=== PATIENT | male | born 1985 | race Caucasian/White ===

== ENCOUNTER 2023-02-26 14:22 | Outpatient (OUT) | payer OTHER, SELFPAY ==
--- NOTE | 2023-02-26 14:31 | ECG_ITS ---
[facility] Test Date: 2023-02-26 Pat Name: CAMI GONZALEZ Department: Room: - Gender: Male Network Specialist: : [id number] Requested By: LACEY LIU Order Number: [id number] Reading MD: RUBIN ALLEN Measurements Intervals [place] Rate: 95 P: 28 SC: 172 QRS: 42 QRSD: 88 T: 13 QT: 326 QTc: 410 Interpretive Statements SINUS RHYTHM Non-Specific T wave inversion in III No previous ECG available for comparison Electronically Signed On 02-27-2023 5:37:38 EDT by RUBIN ALLEN
[2023-02-26 15:25] LABS: Anion Gap 9.8; BUN Creatinine Ratio 8.4; Calcium 9.6 mg/dL (8.5-10.1); Carbon Dioxide 28.1 mmol/L (21.0-32.0); Chloride 101 mmol/L (98-107); Estimated GFR (African America >60 (>=60); Estimated GFR (Non-African Ame >60 (>=60); Glucose 115 mg/dL (74-106); Potassium 3.9 mmol/L (3.5-5.1); Sodium 135 mmol/L (136-145)
[2023-02-26 15:42] LABS: Basophils Absolute Auto 0.1 10^3/uL (0.0-0.1); Eosinophils Absolute Auto 0.7 10^3/uL (0.0-0.7); Eosinophils Percent Auto 7.7 % (0.9-7.0); Hematocrit 48.6 % (42.0-54.0); Immature Granulocytes Abs Auto 0.04 10^3/uL (0.00-0.03); Immature Granulocytes Pct Auto 0.5 % (0.0-0.5); Lymphocytes Absolute Auto 3.2 10^3/uL (1.2-3.8); Lymphocytes Percent Auto 38.5 % (20.5-60.0); Mean Corpuscular Hemoglobin 30.3 pg (25.9-34.0); Mean Corpuscular Volume 86.6 fL (80.0-94.0); Mean Platelet Volume 9.8 fL (9.5-13.5); Monocytes Absolute Auto 0.9 10^3/uL (0.3-0.8); Monocytes Percent Auto 10.1 % (1.7-12.0); Neutrophils Absolute Auto 3.5 10^3/uL (1.4-6.5); Neutrophils Percent Auto 42.2 % (43.0-75.0); Platelet Count 324 10^3/uL (150-450); Red Blood Count 5.61 10^6/uL (4.70-6.10); Red Cell Distribution Width 12.5 % (11.0-15.0); White Blood Count 8.4 10^3/uL (4.0-11.0)
[2023-02-26 15:55] LABS: INR 0.99; Partial Thromboplastin Time 26.3 sec (22.3-36.2); Prothrombin Time 10.5 sec (9.0-11.6)
== END 2023-02-26 14:23 | disposition home or self-care (01) ==
LOC: PST 14:25
PROVIDERS: Visit Provider Urology
DX: Z01.810 Encounter for preprocedural cardiovascular examination (principal); Z01.812 Encounter for preprocedural laboratory examination; K21.9 Gastro-esophageal reflux disease without esophagitis; F41.9 Anxiety disorder, unspecified; F32.A Depression, unspecified; I10 Essential (primary) hypertension; Z30.2 Encounter for sterilization
CPT/HCPCS: 80048; 85025; 85610; 85730; 93005

== ENCOUNTER 2023-03-07 09:18 | Day surgery (SDC) | payer OTHER, SELFPAY ==
[2023-02-26 14:48] VITALS: BP 124/87; PULSE 106; RESP 18; TEMP 36.2; O2SAT 96; BMI 43.0
[2023-03-07] VITALS (11 sets, daily range): BP systolic 110–141; BP diastolic 75–105; PULSE 64–87; RESP 7–18; TEMP 35.9–36.4; O2SAT 90–97; BMI 43.0
[2023-03-07] MEDS: LACTATED RINGER'S SOLUTION 1,000 ML 50 ML IV (09:39)
[2023-03-07] MEDS: CEFAZOLIN SODIUM/DEXTROSE,ISO 1 GM/50 ML IV.SOLN IV (10:44)
[2023-03-07] MEDS: LIDOCAINE HCL 1% PF 20 MG/2 ML VIAL 10 ML INJ (11:15)
[2023-03-07] MEDS: BACITRACIN OINTMENT 28.4 GM TUBE 1 APPLIC TOPICAL (12:35)
--- NOTE | 2023-03-07 12:56 | PM.URSON ---
Urology Surgery Operative Note Operative Note Procedure Date: 03/07/23 Time Out Performed: yes Pre-op Diagnosis: fertile male Post-op Diagnosis: same as pre-op Procedures performed: #1. Left unilateral segmental vasectomy. #2. Right hemiscrotal exploration Anesthesia: MAC and local Primary Surgeon: David Mckeon Complications: none Estimated blood loss (mL): 5 Findings: #1. Absent right vasa Specimens: #1. Left vasa segment Indications for Procedures: this gentleman is desirous of sterilization. He has signed an informed consent for bilateral segmental vasectomy after all risks were explained. He was strongly desirous to have this done under Mac Gen. anesthesia. Detailed description of Procedure: the patient was brought to the operating room and placed on the operating room table in the supine position. Timeout was done by all parties in the room. We all agreed upon the patient's identification and the planned procedures for this patient. Rhaat anesthesia was then administered. Genitalia were sterilely prepped and draped in the usual fashion. I started by palpating the left hemiscrotum. The vasa was located extremely posteriorly. This was brought to the anterior scrotal surface. I then used 1 percent lidocaine and infiltrated a weal in the skinand then in the subcutaneous tissues. A 15 blade scalpel was used to make a small incision in the skin weal. Blunt dissection with a hemostat was done down to the vasa. A ring forceps was used to grasp the vasa. A loop of vas was bluntly and sharply dissected out. Hemostats were placed on the ends of the loop and the loop was transected and sent for permanent sections. Each and was coagulated with the Bovie. Each end was tied with 2-0 Vicryl. The proximal end was everted upon itself with a 4-0 Vicryl stitch in order to help prevent recanalization. Tiny bleeders were coagulated with the needle-tipped Bovie cautery. Ends of the vasa were then allowed to fall in the hemiscrotum. 4-0 Vicryl was used to close the tiny incision in an interrupted fashion. I then palpated the right side. I was unable to palpate of vas after extensive examination. I tthen made a 2 cm incision over the distal spermatic cord area. Sharp dissection down to the cord was done. The cord was then delivered out of the incision. The testicle was also brought out of the incision. I then could palpate and inspect the cord in great detail. I was unable to identify any vas whatsoever. I then placed the cord and testicle back in the hemiscrotum in the proper anatomic orientation. I then closed the dartos layer with 3-0 Vicryl in a running fashion. The skin was closed with 4-0 Vicryl in a running fashion. Bacitracin ointment was applied. Sterile fluffs were placed. A sscrotal support was then applied. He was then transferred to a [facility] bed and wheeled to PACU in stable condition. He will be discharged to home later today with a prescription for Keflex 500 3 times a day for a week and Toradol 10 mg every 8 when necessary. He'll follow up in 2-3 weeks.
== END 2023-03-07 14:20 | disposition home or self-care (01) ==
PROVIDERS: Visit Provider Urology
PROC: (CPT 55110; principal; 2023-03-07 10:30)
DX: Z30.2 Encounter for sterilization (principal); K21.9 Gastro-esophageal reflux disease without esophagitis; F41.9 Anxiety disorder, unspecified; F32.A Depression, unspecified; I10 Essential (primary) hypertension; E66.9 Obesity, unspecified; Z87.891 Personal history of nicotine dependence; Z68.41 Body mass index [BMI] 40.0-44.9, adult
CPT/HCPCS: 55110; 55250; 36415; 88302